=== PATIENT | male | born 1940 | race African-American/Black ===

== ENCOUNTER 2016-08-26 21:04 | Emergency (ER) | payer MEDICARE, OTHER ==
[~2016-08-26] VITALS: Ht 167.6 cm; Wt 88.5 kg
[~2016-08-26 21:04] MED LIST: ALBU8.5H8 INH; BECL8.7A5 INH; LISI-221 PO; METF-305 PO; OMEP20CA10 PO; SPIRIVA IH
[2016-08-26 21:05] VITALS: BP_SYST 163
--- NOTE | 2016-08-26 23:55 | NUR ---
AMBULATORY TO BED 7 FOR EVALUATION
--- NOTE | 2016-08-27 | NUR ---
PT IN BED7 WITH C/O SEVERE SUDDEN ONSET H/A . STABLE . DR MARY GROVES.
--- NOTE | 2016-08-27 00:17 | NUR ---
ER DR HERNANDEZ at bedside examining patient.
[2016-08-27 00:47] LABS: BASOPHILS % (AUTO) 0.2 % (0.0-2.0); HEMATOCRIT 41.9 % (36-54); HEMOGLOBIN 13.6 g/dL (14.0-18.0); LYMPHOCYTES % (AUTO) 26.7 % (20.5-51.5); MEAN CORPUSCULAR HEMOGLOBIN 30 pg (27-31); MEAN CORPUSCULAR HGB CONC 33 % (32-36); MEAN CORPUSCULAR VOLUME 92 fL (79.0-98.0); MONOCYTES # (AUTO) 0.8 K/uL (0.0-1.0); MONOCYTES % (AUTO) 7.2 % (1.7-9.3); NEUTROPHILS # (AUTO) 7.4 K/uL (1.8-7.7); NEUTROPHILS % (AUTO) 65.9 % (40.0-70.0); PLATELET COUNT (AUTO) 405 K/uL (130-430); RED BLOOD CELL COUNT(AUTO) 4.57 MIL/uL (4.2-6.2); RED CELL DISTRIBUTION WIDTH 14.1 % (9.0-15.0); WHITE BLOOD COUNT (AUTO) 11.2 K/uL (4.8-10.8)
[2016-08-27 00:48] LABS: ANION GAP 5 (5-15); CALCIUM 9.2 mg/dL (8.4-11.0); CHLORIDE 91 mmol/L (98-107); CREATININE 1.36 mg/dL (0.55-1.30); GLUCOSE 264 mg/dL (70-99); POTASSIUM 4.8 mmol/L (3.5-5.1); SODIUM SERUM 126 mmol/L (136-145); UREA NITROGEN, BLOOD 15 mg/dL (8-21)
[2016-08-27 00:53] LABS: ALANINE AMINOTRANSFERASE 21 U/L (12-78); ALBUMIN 3.5 g/dL (3.4-4.8); ASPARTATE AMINOTRANSFERASE 14 U/L (10-37); TOTAL BILIRUBIN 0.2 mg/dL (0.0-1.0); TOTAL PROTEIN, SERUM 7.7 g/dL (6.4-8.3)
--- NOTE | 2016-08-27 02:00 | NUR ---
Patient given written and verbal discharge instructions and verbalizes understanding. ER MD discussed with patient the results and treatment provided. Given copies of tests performed in ER. Patient in stable condition. ID arm band removed. No Rx given. Patient educated on pain management and to follow up with PMD. Pain Scale 0/10. Opportunity for questions provided and answered.
[2016-08-27 02:24] VITALS: BP_SYST 153
== END 2016-08-27 02:00 | disposition home or self-care (01) ==
LOC: SED 21:04
DX: R51 Headache (principal); J44.9 Chronic obstructive pulmonary disease, unspecified; E78.5 Hyperlipidemia, unspecified; E11.9 Type 2 diabetes mellitus without complications; K21.9 Gastro-esophageal reflux disease without esophagitis; I10 Essential (primary) hypertension; Z88.0 Allergy status to penicillin
CPT/HCPCS: 36415; 70450-TC; 80053; 85025; 99285

== ENCOUNTER 2021-01-31 08:27 | Emergency (ER) | payer OTHER ==
[~2021-01-31] VITALS: Ht 167.6 cm; Wt 55.8 kg
[~2021-01-31 08:27] MED LIST changes: -METF-305 PO; +METF-381 PO; -OMEP20CA10 PO; +OMEP20CA15 PO
[2021-01-31 08:35] VITALS: BP_SYST 165
--- NOTE | 2021-01-31 08:35 | NUR ---
Placed in room 7 . Placed on surveillance monitor, blood pressure machine and pulse oximeter. To gown for exam. Side rails up.
--- NOTE | 2021-01-31 08:36 | NUR ---
Pt came into ER with complaint of lower mid abdomianl pain X7days 01/02 with N/V/D X1day. Last BM this morning and last void this morning. Pt reports this pain started a week ago. Pt is AAOX4 speaking full sentences. Pt guarding abdomen resting in gurney attached to monitor. Vital signs holding BP slightly elevated 165/85.
--- NOTE | 2021-01-31 08:37 | NUR ---
Jan Ryan at bedside examining patient.
[2021-01-31] MEDS ORDERED: MORPHINE 4 MG INJ. 4 MG/ML VIAL IVP ONE (08:45)
--- NOTE | 2021-01-31 09:04 | NUR ---
# 20 gauge angiocath placed to LAC. Use of asceptic technique. Opsite placed over site. Blood return noted. Blood for lab drawn from site. Flushed with 10 cc of normal saline. No evidence of infiltration noted. Patient tolerated well.
--- NOTE | 2021-01-31 09:05 | NUR ---
Blood colelcted and sent to lab.
[2021-01-31 09:10] LABS: BASOPHILS # (AUTO) 0.3 K/uL (0.0-0.2); BASOPHILS % (AUTO) 2.7 % (0.0-2.0); EOSINOPHILS # (AUTO) 0.2 K/uL (0.0-0.4); HEMOGLOBIN 12.6 g/dL (14.0-18.0); LYMPHOCYTES # (AUTO) 2.9 K/uL (1.0-5.5); MEAN CORPUSCULAR HEMOGLOBIN 31 pg (27-31); MEAN CORPUSCULAR HGB CONC 34 % (32-36); MEAN CORPUSCULAR VOLUME 92 fL (79.0-98.0); MONOCYTES # (AUTO) 0.6 K/uL (0.0-1.0); MONOCYTES % (AUTO) 5.6 % (1.7-9.3); NEUTROPHILS # (AUTO) 7.1 K/uL (1.8-7.7); NEUTROPHILS % (AUTO) 63.7 % (40.0-70.0); PLATELET COUNT (AUTO) 386 K/uL (130-430); RED BLOOD CELL COUNT(AUTO) 4.04 MIL/uL (4.2-6.2); WHITE BLOOD COUNT (AUTO) 11.2 K/uL (4.8-10.8)
--- NOTE | 2021-01-31 09:10 | NUR ---
Patient transported to radiology via wheelchair, accompanied by tech.
[2021-01-31] MEDS ORDERED: NEU300 PO (09:24)
[2021-01-31] MEDS ORDERED: FURO-149 PO (09:24)
[2021-01-31] MEDS ORDERED: VITD2000 PO (09:24)
[2021-01-31] MEDS ORDERED: IRBE150T48 PO (09:24)
[2021-01-31] MEDS ORDERED: ATOR-1 PO (09:24)
[2021-01-31] MEDS ORDERED: ALBU2.5V7 INH (09:24)
[2021-01-31] MEDS ORDERED: ASPI-1393 PO (09:24)
[2021-01-31] MEDS ORDERED: FLUT1AER INH (09:24)
[2021-01-31] MEDS ORDERED: TAMS-11 PO (09:24)
[2021-01-31] MEDS ORDERED: RIVA10TA PO (09:24)
[2021-01-31] MEDS ORDERED: ACET325T53 PO (09:24)
[2021-01-31] MEDS ORDERED: ALBMDI INH (09:24)
--- NOTE | 2021-01-31 09:24 | NUR ---
Medication reconciliation completed with information provided by Patient provided list. Any prior medication reconciliation on file was reviewed and corrected.
--- NOTE | 2021-01-31 09:26 | NUR ---
Pt back from CT reattached to monitor.
[2021-01-31 09:27] LABS: ANION GAP 12 (5-15); CALCIUM 9.1 mg/dL (8.4-11.0); CHLORIDE 92 mmol/L (98-107); CREATININE 1.79 mg/dL (0.55-1.30); GLUCOSE 123 mg/dL (70-99); POTASSIUM 3.9 mmol/L (3.5-5.1); SODIUM SERUM 132 mmol/L (136-145); UREA NITROGEN, BLOOD 16 mg/dL (8-21)
[2021-01-31 09:33] LABS: ALANINE AMINOTRANSFERASE 14 U/L (12-78); ALBUMIN 3.6 g/dL (3.4-4.8); ASPARTATE AMINOTRANSFERASE 17 U/L (10-37); TOTAL BILIRUBIN 0.7 mg/dL (0.0-1.0)
--- NOTE | 2021-01-31 09:48 | NUR ---
Urine specimen collected and sent to lab.
--- NOTE | 2021-01-31 10:24 | NUR ---
In/Out catheter performed using sterile technique. Pt tolerated well. Pt states he feels relief. Over 1000 mLs of velasquez colored urine drained and collected.
--- NOTE | 2021-01-31 10:49 | NUR ---
Leg bag pedro insterted per MD order. Sterile technique applied. Pt tolerated well. Strapped to left thigh. Pt educated on usage and drainage. Return demonstration noted.
[2021-01-31 11:27] LABS: BILIRUBIN,URINE NEGATIVE (NEGATIVE); BLOOD, URINE NEGATIVE (NEGATIVE); COLOR,URINE YELLOW (YELLOW); GLUCOSE,URINE NEGATIVE (NEGATIVE); KETONES,URINE NEGATIVE (NEGATIVE); LEUKOCYTE ESTERASE ,URINE TRACE (NEGATIVE); NITRITE, URINE NEGATIVE (NEGATIVE); PROTEIN URINE NEGATIVE (NEGATIVE); UROBILINOGEN,URINE 0.2 (0.2-1.0)
[2021-01-31 11:28] LABS: CLARITY/URINE CLEAR (CLEAR)
--- NOTE | 2021-01-31 12:17 | NUR ---
Patient given written and verbal discharge instructions and verbalizes understanding. ER MD discussed with patient the results and treatment provided. Patient in stable condition. ID arm band removed. IV catheter removed intact and dressing applied, no active bleeding. Patient educated on pain management and to follow up with PMD. Pain Scale . Opportunity for questions provided and answered. Medication side effect fact sheet provided.
[2021-01-31 12:18] VITALS: BP_SYST 147
== END 2021-01-31 12:17 | disposition home or self-care (01) ==
LOC: SED 08:27
DX: R33.9 Retention of urine, unspecified (principal); G89.29 Other chronic pain; R10.30 Lower abdominal pain, unspecified; I10 Essential (primary) hypertension; E11.9 Type 2 diabetes mellitus without complications; J44.9 Chronic obstructive pulmonary disease, unspecified; K21.9 Gastro-esophageal reflux disease without esophagitis; Z88.0 Allergy status to penicillin; Z79.899 Other long term (current) drug therapy
CPT/HCPCS: 36415; 51701; 74176; 76376; 80053; 81003; 85025; 96374; 99284; J2270

== ENCOUNTER 2021-02-12 15:24 | Emergency (ER) | payer OTHER ==
[~2021-02-12] VITALS: Ht 167.6 cm; Wt 55.8 kg
[~2021-02-12 15:24] MED LIST changes: +ACET325T53 PO; +ALBMDI INH; +ALBU2.5V7 INH; -ALBU8.5H8 INH; +ASPI-1393 PO; +ATOR-1 PO; -BECL8.7A5 INH; +FLUT1AER INH; +FURO-149 PO; +IRBE150T48 PO; -LISI-221 PO; +NEU300 PO; +RIVA10TA PO; -SPIRIVA IH; +TAMS-11 PO; +VITD2000 PO
[2021-02-12 15:52] VITALS: BP_SYST 144
--- NOTE | 2021-02-12 18:04 | NUR ---
Patient to ER bed 02 to gown for evaluation. Side rails up.
--- NOTE | 2021-02-12 18:15 | NUR ---
urine specimen obtained from pedro cath. , blood tinged
--- NOTE | 2021-02-12 18:20 | NUR ---
Patient transported to radiology via wheelchair, accompanied by staff.
[2021-02-12 18:27] LABS: HEMATOCRIT 34.5 % (36-54); HEMOGLOBIN 11.8 g/dL (14.0-18.0); MEAN CORPUSCULAR HEMOGLOBIN 32 pg (27-31); MEAN CORPUSCULAR HGB CONC 34 % (32-36); MEAN CORPUSCULAR VOLUME 94 fL (79.0-98.0); PLATELET COUNT (AUTO) 519 K/uL (130-430); RED BLOOD CELL COUNT(AUTO) 3.69 MIL/uL (4.2-6.2); RED CELL DISTRIBUTION WIDTH 15.7 % (9.0-15.0); WHITE BLOOD COUNT (AUTO) 10.6 K/uL (4.8-10.8)
[2021-02-12 18:29] LABS: INR 0.9 (0.80-1.20); PROTHROMBIN TIME 10.1 SECS (9.5-12.5)
[2021-02-12 19:13] LABS: ANION GAP 8 (5-15); CALCIUM 9.2 mg/dL (8.4-11.0); CHLORIDE 95 mmol/L (98-107); GLUCOSE 98 mg/dL (70-99); POTASSIUM 4.3 mmol/L (3.5-5.1); SODIUM SERUM 132 mmol/L (136-145); UREA NITROGEN, BLOOD 13 mg/dL (8-21)
--- NOTE | 2021-02-12 19:18 | NUR ---
report to Mary
[2021-02-12 19:27] LABS: ALANINE AMINOTRANSFERASE 15 U/L (12-78); ALBUMIN 3.1 g/dL (3.4-4.8); AMYLASE 74 U/L (0-100); ASPARTATE AMINOTRANSFERASE 19 U/L (10-37); LIPASE 62 U/L (73-393); TOTAL BILIRUBIN 0.4 mg/dL (0.0-1.0)
[2021-02-12 20:17] LABS: C-REACTIVE PROTEIN QUANT 2.8 mg/dL (0-0.5)
[2021-02-12] MEDS ORDERED: NITR-85 PO (20:30)
--- NOTE | 2021-02-12 20:53 | NUR ---
AWAITING LAB RESULTS
--- NOTE | 2021-02-12 21:04 | NUR ---
PT [facility] DISCHG INSTRUCTIONS REVIEWED WITH PT PT DISCHGED WITH SON VIA WALKER TO AUTO FOR HOME STABLE
[2021-02-12 21:07] VITALS: BP_SYST 140
[2021-02-12 21:36] LABS: BILIRUBIN,URINE NEGATIVE (NEGATIVE); BLOOD, URINE 3+ (NEGATIVE); CLARITY/URINE CLOUDY (CLEAR); COLOR,URINE RED (YELLOW); GLUCOSE,URINE NEGATIVE (NEGATIVE); KETONES,URINE NEGATIVE (NEGATIVE); LEUKOCYTE ESTERASE ,URINE 3+ (NEGATIVE); NITRITE, URINE POSITIVE (NEGATIVE); PROTEIN URINE 1+ (NEGATIVE)
[2021-02-12 22:09] LABS: BACTERIA,URINE MANY /HPF (None Seen); RBC,URINE >100 /HPF (0-3); WBC,URINE 20-50 /HPF (0-3)
[2021-02-13 00:33] LABS: ATYPICAL LYMPHOCYTES % 4 % (0-0); BASOPHILS % (MANUAL) 0 % (0-2); EOSINOPHILS % (MANUAL) 1 % (0-7); LYMPHOCYTES % (MANUAL) 38 % (20-46); MONOCYTES % (MANUAL) 10 % (0-11)
== END 2021-02-12 21:07 | disposition home or self-care (01) ==
LOC: SED 15:24
DX: N39.0 Urinary tract infection, site not specified (principal); R31.9 Hematuria, unspecified; I10 Essential (primary) hypertension; E11.9 Type 2 diabetes mellitus without complications; J44.9 Chronic obstructive pulmonary disease, unspecified; K21.9 Gastro-esophageal reflux disease without esophagitis; Z88.0 Allergy status to penicillin; Z79.899 Other long term (current) drug therapy
CPT/HCPCS: 36415; 76376; 80053; 81000; 82150; 83605; 83690; 85007; 85025; 85027; 85610-TC; 85730-TC; 86140; 87086; 87186-TC; 99284

== ENCOUNTER 2022-05-16 15:41 | Inpatient (IN) | payer OTHER ==
[~2022-05-16] VITALS: Ht 167.6 cm; Wt 55.3 kg
[~2022-05-16 15:41] MED LIST changes: +FINA5TAB3 PO; +LEVO750T64 PO; +OMEP-268 PO; -OMEP20CA15 PO
[2022-05-16 15:48] VITALS: BP_SYST 109
--- NOTE | 2022-05-16 16:03 | NUR ---
PATIENT BIBChang FROM HOME AAOX4 UNABLE TO SPEAK A FULL SENTENCE, ON NRM PLACE IN ROOM 7 ON PARTS CATALOGUER, AWAITING FOR EDP FOR INITIAL ASSESSMENT.
[2022-05-16] MEDS ORDERED: NACL 0.9% 1,000 ML IV ONE (17:00)
[2022-05-16] MEDS ORDERED: NEU300 PO (17:01)
[2022-05-16] MEDS ORDERED: TAMS-11 PO (17:01)
[2022-05-16] MEDS ORDERED: ZETIA (17:01)
[2022-05-16] MEDS ORDERED: ALBMDI INH (17:01)
[2022-05-16] MEDS ORDERED: FURO10VI27 IVP (17:01)
[2022-05-16] MEDS ORDERED: OMEP20TA20 PO (17:01)
[2022-05-16] MEDS ORDERED: ATOR40TA68 PO (17:01)
[2022-05-16 17:40] LABS: BASOPHILS # (AUTO) 0.1 K/uL (0.0-0.2); BASOPHILS % (AUTO) 0.5 % (0.0-2.0); HEMATOCRIT 42.8 % (36-54); HEMOGLOBIN 14.5 g/dL (14.0-18.0); LYMPHOCYTES # (AUTO) 2.5 K/uL (1.0-5.5); LYMPHOCYTES % (AUTO) 11.6 % (20.5-51.5); MEAN CORPUSCULAR HEMOGLOBIN 31 pg (27-31); MEAN CORPUSCULAR HGB CONC 34 % (32-36); MEAN CORPUSCULAR VOLUME 90 fL (79.0-98.0); MONOCYTES % (AUTO) 4.7 % (1.7-9.3); NEUTROPHILS # (AUTO) 18.1 K/uL (1.8-7.7); NEUTROPHILS % (AUTO) 83.2 % (40.0-70.0); PLATELET COUNT (AUTO) 242 K/uL (130-430); RED BLOOD CELL COUNT(AUTO) 4.73 MIL/uL (4.2-6.2); RED CELL DISTRIBUTION WIDTH 15.3 % (9.0-15.0); WHITE BLOOD COUNT (AUTO) 21.8 K/uL (4.8-10.8)
[2022-05-16 17:56] LABS: ANION GAP 8 (5-15); CALCIUM 8.7 mg/dL (8.4-11.0); CHLORIDE 96 mmol/L (98-107); CREATININE 1.75 mg/dL (0.55-1.30); GLUCOSE 196 mg/dL (70-99); UREA NITROGEN, BLOOD 19 mg/dL (8-21)
[2022-05-16 18:03] LABS: PROTHROMBIN TIME 10.9 SECS (9.5-12.5)
[2022-05-16 18:05] LABS: ALANINE AMINOTRANSFERASE 10 U/L (12-78); ALBUMIN 2.7 g/dL (3.4-4.8); ASPARTATE AMINOTRANSFERASE 19 U/L (10-37); TOTAL BILIRUBIN 0.7 mg/dL (0.0-1.0)
[2022-05-16] MEDS ORDERED: NS 500 ML IV ONE (19:30)
--- NOTE | 2022-05-16 19:30 | NUR ---
Patient ambulated to restroom. Had a bowel movement.
--- NOTE | 2022-05-16 20:20 | NUR ---
Covid and Influenza swab done and sent to lab.
--- NOTE | 2022-05-16 21:52 | NUR ---
Patient resting quietly. No acute distress noted. Vital signs within normal range.
--- NOTE | 2022-05-16 23:05 | NUR ---
Patient will be admitted to care of [facility]. Admitted to TELE unit. Will go to room 111A. Belongings list completed. Complete and up to date summary report printed. SBAR report to be given at bedside with opportunity for questions.
[2022-05-17] VITALS (7 sets, daily range): BP systolic 100–134
[2022-05-17] MEDS ORDERED: ONDANSETRON HCL 4 MG/2 ML VIAL IVP PRN (07:15)
[2022-05-17] MEDS ORDERED: DEXTROSE 50% JECT 50 ML DISP.SYRIN IVP PRN (07:15)
[2022-05-17] MEDS ORDERED: ALBUTEROL SULFATE 0.083% 2.5 MG/3 ML VIAL.NEB INH PRN (07:15)
[2022-05-17] MEDS ORDERED: MORPHINE 2 MG/ML INJ. SYRINGE IVP PRN (07:15)
[2022-05-17] MEDS ORDERED: IPRATROPIUM BROM 0.5 MG/2.5 ML VIAL.NEB (ATROVENT) INH PRN (07:15)
[2022-05-17] MEDS ORDERED: GLUCOSE (DEXTROSE) ORAL GEL -Adults PO PRN (07:15)
[2022-05-17] MEDS ORDERED: D5W 1,000 ML IV PRN (07:15)
[2022-05-17] MEDS: ENOXAPARIN SODIUM 30 MG/0.3 ML SYRINGE SUBCUT SCH (09:00)
[2022-05-17] MEDS ORDERED: ASPIRIN 81 MG TABLET(ECOTRIN) PO SCH (09:00)
[2022-05-17] MEDS ORDERED: ENOXAPARIN SODIUM 40 MG/0.4 ML SYRINGE ONE (09:16)
--- NOTE | 2022-05-17 09:37 | NUR ---
CONSULTATION PAGED/CALLED Reason for Consultation: ELEV TROP Person Who was Notified: JASMYN Consulting Physician: ALLISON ARDON Ordering Physician: JOHN BAUMANN
--- NOTE | 2022-05-17 09:46 | NUR ---
CONSULTATION PAGED/CALLED Reason for Consultation: PNA Person Who was Notified: BETH Consulting Physician: JOHN WARNER Ordering Physician: JOHN BAUMANN
[2022-05-17 10:45] LABS: BASOPHILS # (AUTO) 0.1 K/uL (0.0-0.2); BASOPHILS % (AUTO) 0.3 % (0.0-2.0); EOSINOPHILS % (AUTO) 0.1 % (0.0-4.0); HEMATOCRIT 38.3 % (36-54); HEMOGLOBIN 12.8 g/dL (14.0-18.0); LYMPHOCYTES # (AUTO) 2.3 K/uL (1.0-5.5); LYMPHOCYTES % (AUTO) 11.9 % (20.5-51.5); MEAN CORPUSCULAR HEMOGLOBIN 31 pg (27-31); MEAN CORPUSCULAR HGB CONC 34 % (32-36); MEAN CORPUSCULAR VOLUME 91 fL (79.0-98.0); MONOCYTES # (AUTO) 0.7 K/uL (0.0-1.0); MONOCYTES % (AUTO) 3.7 % (1.7-9.3); NEUTROPHILS # (AUTO) 16.3 K/uL (1.8-7.7); PLATELET COUNT (AUTO) 208 K/uL (130-430); RED CELL DISTRIBUTION WIDTH 15.8 % (9.0-15.0); WHITE BLOOD COUNT (AUTO) 19.4 K/uL (4.8-10.8)
[2022-05-17] MEDS: ASPIRIN 81 MG TAB.CHEW PO SCH (11:05)
[2022-05-17] MEDS ORDERED: GABAPENTIN 300 MG CAPSULE PO ONE (11:15)
[2022-05-17] MEDS ORDERED: INSULIN REGULAR, HUMAN 100 UNITS/ML, 3 ML VIAL (humuLIN R) SUBCUT PRN (11:30)
[2022-05-17 12:14] LABS: ALANINE AMINOTRANSFERASE 6 U/L (12-78); ALBUMIN 2.5 g/dL (3.4-4.8); ANION GAP 7 (5-15); ASPARTATE AMINOTRANSFERASE 18 U/L (10-37); CALCIUM 8.2 mg/dL (8.4-11.0); CHLORIDE 97 mmol/L (98-107); CHOLESTEROL 106 mg/dL (<200); CREATININE 1.54 mg/dL (0.55-1.30); GLUCOSE 222 mg/dL (70-99); HDL CHOLESTEROL 63 mg/dL (>45); TOTAL BILIRUBIN 0.9 mg/dL (0.0-1.0); TRIGLYCERIDES 69 mg/dL (30-150); UREA NITROGEN, BLOOD 23 mg/dL (8-21)
--- NOTE | 2022-05-17 13:24 | NUR ---
IN AND OUT CATHETER UNSUCCESSFUL. PATIENT SAID HE WILL TRY TO PEE IN URINAL FOR UA AND URINE CULTURE COLLECTION;.
--- NOTE | 2022-05-17 18:08 | NUR ---
blood sugar 68. notified dr. holbrook. gave orange juice. blood sugar recheck is 135.
[2022-05-17] MEDS: TAMSULOSIN HCL 0.4 MG CAP PO SCH (18:14)
[2022-05-17] MEDS: ALBUTEROL SULFATE 0.083% 2.5 MG/3 ML VIAL.NEB INH SCH (19:52)
[2022-05-17] MEDS: ATORVASTATIN 20 MG TABLET PO SCH (21:02)
[2022-05-17] MEDS: GABAPENTIN 300 MG CAPSULE PO SCH (21:02)
--- NOTE | 2022-05-17 22:38 | NUR ---
Report given to CRYS Gerber for continuity of care. Patient stable.
[2022-05-18 00:16] VITALS: BP_SYST 121
[2022-05-18] MEDS: ALBUTEROL SULFATE 0.083% 2.5 MG/3 ML VIAL.NEB INH SCH ×4 (03:42→20:03)
[2022-05-18 04:52] LABS: BASOPHILS # (AUTO) 0.1 K/uL (0.0-0.2); BASOPHILS % (AUTO) 0.6 % (0.0-2.0); EOSINOPHILS % (AUTO) 0.2 % (0.0-4.0); HEMATOCRIT 35.4 % (36-54); HEMOGLOBIN 11.9 g/dL (14.0-18.0); LYMPHOCYTES # (AUTO) 3.2 K/uL (1.0-5.5); LYMPHOCYTES % (AUTO) 19.4 % (20.5-51.5); MEAN CORPUSCULAR HEMOGLOBIN 31 pg (27-31); MEAN CORPUSCULAR HGB CONC 34 % (32-36); MEAN CORPUSCULAR VOLUME 91 fL (79.0-98.0); MONOCYTES % (AUTO) 6.2 % (1.7-9.3); NEUTROPHILS # (AUTO) 12.3 K/uL (1.8-7.7); NEUTROPHILS % (AUTO) 73.6 % (40.0-70.0); PLATELET COUNT (AUTO) 202 K/uL (130-430); RED CELL DISTRIBUTION WIDTH 15.5 % (9.0-15.0); WHITE BLOOD COUNT (AUTO) 16.7 K/uL (4.8-10.8)
[2022-05-18 05:04] LABS: ANION GAP 3 (5-15); CALCIUM 8.5 mg/dL (8.4-11.0); CHLORIDE 99 mmol/L (98-107); CREATININE 1.25 mg/dL (0.55-1.30); GLUCOSE 119 mg/dL (70-99); UREA NITROGEN, BLOOD 20 mg/dL (8-21)
[2022-05-18 05:16] LABS: ALANINE AMINOTRANSFERASE 11 U/L (12-78); ALBUMIN 2.2 g/dL (3.4-4.8); ASPARTATE AMINOTRANSFERASE 18 U/L (10-37); TOTAL BILIRUBIN 0.8 mg/dL (0.0-1.0)
[2022-05-18] MEDS ORDERED: FINASTERIDE 5 MG TABLET (PROSCAR) PO SCH (09:00)
[2022-05-18] MEDS: BREO INH SCH (09:00)
[2022-05-18] MEDS ORDERED: ATORVASTATIN 20 MG TABLET PO SCH (09:00)
[2022-05-18] MEDS: ELLIPTA INH SCH (09:00)
[2022-05-18] MEDS ORDERED: FLUTICASONE/VILANTEROL 1 EACH BLST.W.DEV INH SCH (09:00)
[2022-05-18] MEDS: GABAPENTIN 300 MG CAPSULE PO SCH ×2 (09:02→21:12)
[2022-05-18] MEDS: ASPIRIN 81 MG TAB.CHEW PO SCH (09:03)
[2022-05-18] MEDS: ENOXAPARIN SODIUM 30 MG/0.3 ML SYRINGE SUBCUT SCH (09:03)
[2022-05-18] MEDS: LOSARTAN POTASSIUM 50 MG TABLET (COZAAR) PO SCH (09:03)
[2022-05-18 11:30] VITALS: BP_SYST 116
[2022-05-18 11:52] LABS: URINE SODIUM, RANDOM 10 mmol/L (40-220)
[2022-05-18 15:41] VITALS: BP_SYST 101
[2022-05-18] MEDS: TAMSULOSIN HCL 0.4 MG CAP PO SCH (17:38)
[2022-05-18] MEDS: ATORVASTATIN 20 MG TABLET PO SCH (21:12)
[2022-05-19 00:23] VITALS: BP_SYST 131
[2022-05-19 07:05] LABS: BASOPHILS # (AUTO) 0.1 K/uL (0.0-0.2); BASOPHILS % (AUTO) 0.9 % (0.0-2.0); EOSINOPHILS # (AUTO) 0.1 K/uL (0.0-0.4); EOSINOPHILS % (AUTO) 0.5 % (0.0-4.0); HEMATOCRIT 33.5 % (36-54); HEMOGLOBIN 11.4 g/dL (14.0-18.0); LYMPHOCYTES # (AUTO) 2.8 K/uL (1.0-5.5); LYMPHOCYTES % (AUTO) 27.4 % (20.5-51.5); MEAN CORPUSCULAR HEMOGLOBIN 31 pg (27-31); MEAN CORPUSCULAR HGB CONC 34 % (32-36); MEAN CORPUSCULAR VOLUME 91 fL (79.0-98.0); MONOCYTES # (AUTO) 0.9 K/uL (0.0-1.0); MONOCYTES % (AUTO) 8.4 % (1.7-9.3); NEUTROPHILS # (AUTO) 6.5 K/uL (1.8-7.7); NEUTROPHILS % (AUTO) 62.8 % (40.0-70.0); PLATELET COUNT (AUTO) 234 K/uL (130-430); RED BLOOD CELL COUNT(AUTO) 3.68 MIL/uL (4.2-6.2); WHITE BLOOD COUNT (AUTO) 10.4 K/uL (4.8-10.8)
[2022-05-19] MEDS: ALBUTEROL SULFATE 0.083% 2.5 MG/3 ML VIAL.NEB INH SCH ×2 (07:12→12:09)
[2022-05-19 08:00] VITALS: BP_SYST 114
[2022-05-19 08:02] LABS: ANION GAP 5 (5-15); C-REACTIVE PROTEIN QUANT 13.3 mg/dL (0-0.5); CALCIUM 8.6 mg/dL (8.4-11.0); CHLORIDE 101 mmol/L (98-107); CREATININE 1.21 mg/dL (0.55-1.30); GLUCOSE 132 mg/dL (70-99); PHOSPHORUS 3.3 mg/dL (2.7-4.5); UREA NITROGEN, BLOOD 20 mg/dL (8-21)
[2022-05-19] MEDS: ASPIRIN 81 MG TAB.CHEW PO SCH (09:18)
[2022-05-19] MEDS: GABAPENTIN 300 MG CAPSULE PO SCH (09:18)
[2022-05-19] MEDS: LOSARTAN POTASSIUM 50 MG TABLET (COZAAR) PO SCH (09:18)
[2022-05-19] MEDS: ENOXAPARIN SODIUM 30 MG/0.3 ML SYRINGE SUBCUT SCH (09:18)
[2022-05-19] MEDS: BREO INH SCH (09:22)
[2022-05-19] MEDS: ELLIPTA INH SCH (09:22)
[2022-05-19 10:41] LABS: ERYTHROCYTE SEDIMENTATION RATE 85 MM/HR (0-15)
[2022-05-19 11:33] VITALS: BP_SYST 134
[2022-05-19] MEDS ORDERED: LEVO750T64 PO (12:29)
[2022-05-19 13:13] VITALS: BP_SYST 134
== END 2022-05-19 13:30 | disposition home health service (06) | DRG 871 ==
LOC: SED 15:41 → STU 19:26
PROVIDERS: ADMIT Specialist; ATTEND Specialist
DX: A41.9 Sepsis, unspecified organism (principal); I21.4 Non-ST elevation (NSTEMI) myocardial infarction; J96.01 Acute respiratory failure with hypoxia; J12.9 Viral pneumonia, unspecified; N17.9 Acute kidney failure, unspecified; J44.0 Chronic obstructive pulmonary disease with (acute) lower respiratory infection; R64 Cachexia; Z68.1 Body mass index [BMI] 19.9 or less, adult; I24.8 Other forms of acute ischemic heart disease; R65.20 Severe sepsis without septic shock; D64.9 Anemia, unspecified; E11.22 Type 2 diabetes mellitus with diabetic chronic kidney disease; E11.65 Type 2 diabetes mellitus with hyperglycemia; E87.6 Hypokalemia; E88.09 Other disorders of plasma-protein metabolism, not elsewhere classified; K21.9 Gastro-esophageal reflux disease without esophagitis; F17.210 Nicotine dependence, cigarettes, uncomplicated; E11.21 Type 2 diabetes mellitus with diabetic nephropathy; I12.9 Hypertensive chronic kidney disease with stage 1 through stage 4 chronic kidney disease, or unspecified chronic kidney disease; I35.0 Nonrheumatic aortic (valve) stenosis; N40.0 Benign prostatic hyperplasia without lower urinary tract symptoms; N18.9 Chronic kidney disease, unspecified; Z79.4 Long term (current) use of insulin; Z79.899 Other long term (current) drug therapy; Z88.0 Allergy status to penicillin; Z79.82 Long term (current) use of aspirin
CPT/HCPCS: 36415; 36600; 71045; 71250-TC; 76376; 76770; 80048; 80053; 80061; 82570; 82803-TC; 82962; 83036; 83605; 83735; 83880; 84100; 84302; 84443; 84484; 85025; 85610-TC; 85651-TC; 85730-TC; 86140; 87040; 93005; 93306; 94640; 94760; 96361; 96365; 99285; G0378; J1650; J1815; J1956; J7613

== ENCOUNTER 2022-07-19 04:30 | Emergency (ER) | payer OTHER ==
[~2022-07-19] VITALS: Ht 167.6 cm; Wt 55.8 kg
[~2022-07-19 04:30] MED LIST changes: -ALBU2.5V7 INH; -ATOR-1 PO; +ATOR40TA68 PO; -FINA5TAB3 PO; -OMEP-268 PO; +OMEP20TA20 PO; +ZETIA
[2022-07-19 04:40] VITALS: BP_SYST 110
--- NOTE | 2022-07-19 04:42 | NUR ---
ER at bedside examining patient.
[2022-07-19] MEDS ORDERED: OXYMETAZOLINE HCL 0.05% NASAL SPRAY NS ONE ×2 (04:49→06:15)
--- NOTE | 2022-07-19 05:00 | NUR ---
Pt is noted in bed alert, responsive as he he come from home C/o off Nosebleed. Pt care continue as MD is at bedside rounding on Pt.
--- NOTE | 2022-07-19 06:10 | NUR ---
Pt remain alert, responsive with MD at bedside renforcing dressing and packing to Noese. Pt care continue.
--- NOTE | 2022-07-19 07:08 | NUR ---
Pt care continue while monitor as he is due for discharge any bleeding stops as pt is still bleeding and on coming MD is aware.
--- NOTE | 2022-07-19 07:15 | NUR ---
Pt care continue as report is given to the AM receiving nurse.
--- NOTE | 2022-07-19 07:38 | NUR ---
RECEIVED PT FROM NOC SHIFT RN, ASSUMED CARE.
[2022-07-19] MEDS ORDERED: TRANEXAMIC ACID 1,000 MG/10 ML VIAL TP ONE (08:45)
--- NOTE | 2022-07-19 09:09 | NUR ---
DR BECKFORD AT BEDSIDE DISCUSSING PLAN OF CARE.
--- NOTE | 2022-07-19 09:19 | NUR ---
Patient given written and verbal discharge instructions and verbalizes understanding. ER DR BECKFORD discussed with patient the results and treatment provided. Patient in stable condition. ID arm band removed. Patient educated on pain management and to follow up with PMD. Pain Opportunity for questions provided and answered. Medication side effect fact sheet provided.
[2022-07-19 09:52] VITALS: BP_SYST 112
== END 2022-07-19 09:19 | disposition home or self-care (01) ==
LOC: SED 04:30
DX: R04.0 Epistaxis (principal); J44.9 Chronic obstructive pulmonary disease, unspecified; E11.9 Type 2 diabetes mellitus without complications; I10 Essential (primary) hypertension; K21.9 Gastro-esophageal reflux disease without esophagitis; E78.5 Hyperlipidemia, unspecified; Z88.0 Allergy status to penicillin; Z79.899 Other long term (current) drug therapy
CPT/HCPCS: 99285; 30901; J3490

== ENCOUNTER 2022-07-22 09:50 | Emergency (ER) | payer OTHER ==
[~2022-07-22] VITALS: Ht 175.3 cm; Wt 52.2 kg
[2022-07-22 10:30] VITALS: BP_SYST 114
--- NOTE | 2022-07-22 12:30 | NUR ---
Patient to ER bed TRIAGE to gown for evaluation. Side rails up.
--- NOTE | 2022-07-22 12:40 | NUR ---
ER at bedside examining patient.
--- NOTE | 2022-07-22 12:42 | NUR ---
RHINO ENA REMOVED. PT TOLERTAED WELL.
--- NOTE | 2022-07-22 12:52 | NUR ---
Patient given written and verbal discharge instructions and verbalizes understanding. ER MD discussed with patient the results and treatment provided. Patient in stable condition. ID arm band removed. Opportunity for questions provided and answered. Medication side effect fact sheet provided.
[2022-07-22 13:00] VITALS: BP_SYST 164
== END 2022-07-22 13:00 | disposition home or self-care (01) ==
LOC: SED 09:50
DX: R04.0 Epistaxis (principal); J44.9 Chronic obstructive pulmonary disease, unspecified; E11.9 Type 2 diabetes mellitus without complications; I10 Essential (primary) hypertension; K21.9 Gastro-esophageal reflux disease without esophagitis; Z88.0 Allergy status to penicillin; Z79.899 Other long term (current) drug therapy
CPT/HCPCS: 99281

== ENCOUNTER 2022-08-10 09:15 | Inpatient (IN) | payer OTHER ==
[~2022-08-10] VITALS: Ht 167.6 cm; Wt 59.9 kg
[2022-08-10 09:29] VITALS: BP_SYST 98
--- NOTE | 2022-08-10 09:35 | NUR ---
Pt brought in by [facility] ambulance from home. Mechanical fall with sustained injury to left hip. Non weight bearing after fall. Pt has pain to the left leg and left rib. Pt lying on right side lateral brunner for comfort. Pt states fell last week and injured right side of hip. Pt is 7-9/10 pain gradient.
--- NOTE | 2022-08-10 09:40 | NUR ---
ER at bedside examining patient.
[2022-08-10] MEDS ORDERED: KETOROLAC TROMETHAMINE 15 MG VIAL IM ONE (09:45)
--- NOTE | 2022-08-10 10:10 | NUR ---
Pt returns from Radiology dept. Pt side lying flat position for comfort.
[2022-08-10] MEDS ORDERED: MORPHINE 4 MG INJ. 4 MG/ML VIAL IVP ONE ×2 (11:00→12:45)
--- NOTE | 2022-08-10 11:22 | NUR ---
COVID NASAL SWAB COLLECTED AND SENT TO LAB
--- NOTE | 2022-08-10 11:37 | NUR ---
Pt medicated per MD order, heart rate tachy 107. Pt on right side lying position.
[2022-08-10 12:08] LABS: BASOPHILS # (AUTO) 0.1 K/uL (0.0-0.2); BASOPHILS % (AUTO) 0.9 % (0.0-2.0); EOSINOPHILS # (AUTO) 0.2 K/uL (0.0-0.4); EOSINOPHILS % (AUTO) 2.1 % (0.0-4.0); HEMATOCRIT 33.4 % (36-54); HEMOGLOBIN 11.3 g/dL (14.0-18.0); LYMPHOCYTES # (AUTO) 2.6 K/uL (1.0-5.5); LYMPHOCYTES % (AUTO) 26.1 % (20.5-51.5); MEAN CORPUSCULAR HEMOGLOBIN 31 pg (27-31); MEAN CORPUSCULAR HGB CONC 34 % (32-36); MEAN CORPUSCULAR VOLUME 92 fL (79.0-98.0); MONOCYTES # (AUTO) 0.7 K/uL (0.0-1.0); MONOCYTES % (AUTO) 6.7 % (1.7-9.3); NEUTROPHILS # (AUTO) 6.4 K/uL (1.8-7.7); NEUTROPHILS % (AUTO) 64.2 % (40.0-70.0); PLATELET COUNT (AUTO) 307 K/uL (130-430); RED BLOOD CELL COUNT(AUTO) 3.63 MIL/uL (4.2-6.2); RED CELL DISTRIBUTION WIDTH 16.2 % (9.0-15.0); WHITE BLOOD COUNT (AUTO) 9.9 K/uL (4.8-10.8)
[2022-08-10 12:19] LABS: ANION GAP 7 (5-15); CHLORIDE 88 mmol/L (98-107); CREATININE 1.56 mg/dL (0.55-1.30); GLUCOSE 108 mg/dL (70-99); UREA NITROGEN, BLOOD 26 mg/dL (8-21)
[2022-08-10 12:21] LABS: PROTHROMBIN TIME 10.3 SECS (9.5-12.5)
--- NOTE | 2022-08-10 12:34 | NUR ---
Admit bed requested Patient will be admitted to care of . Admitted to MEDSURG unit. Diagnosis FX OF THE HIP Inpatient (Yes or No) Y Observation (Yes or No) N Orientation concerns or request close to nursing station (Yes or No) N Covid Status NEGATIVE On vent or bipap NO Isolation requirements NO Needs a sitter N From Home (Yes or if No enter name of facility) HOME Requires Dialysis (Yes or No) NO Med Rec Completed (Yes of No) YES, PER VERBAL INTAKE.
--- NOTE | 2022-08-10 12:40 | NUR ---
Medication reconciled per verbal statement review of Pt Pharmacy list.
[2022-08-10] MEDS ORDERED: MORPHINE 2 MG/ML INJ. SYRINGE IVP ONE (12:45)
[2022-08-10] MEDS ORDERED: DULO30CA52 PO (14:18)
[2022-08-10] MEDS ORDERED: GABAPENTIN (14:18)
[2022-08-10] MEDS ORDERED: TAMS0.4C96 PO (14:18)
[2022-08-10] MEDS ORDERED: LISI1TAB55 PO (14:18)
[2022-08-10] MEDS ORDERED: GABA300T25 (14:18)
[2022-08-10] MEDS ORDERED: FURO40TA5 PO (14:18)
[2022-08-10] MEDS ORDERED: EZET10TA30 PO (14:18)
[2022-08-10] MEDS ORDERED: SITA50TA3 PO (14:18)
[2022-08-10] MEDS ORDERED: HYDROcodone/ACETAMIN 5-325 MG TAB (NORCO/ VICODIN) PO PRN (15:45)
[2022-08-10] MEDS ORDERED: ALBUTEROL SULFATE 0.083% 2.5 MG/3 ML VIAL.NEB INH PRN (15:45)
[2022-08-10] MEDS ORDERED: ACETAMINOPHEN 325 MG TABLET PO PRN ×2 (15:45→16:15)
[2022-08-10] MEDS ORDERED: ONDANSETRON HCL 4 MG/2 ML VIAL IVP PRN (15:45)
[2022-08-10] MEDS ORDERED: NALOXONE HCL 0.4 MG/ML AMP (NARCAN) IVP PRN ×2 (15:45)
[2022-08-10] MEDS ORDERED: LORazepam 2 MG/ML VIAL IVP PRN (15:45)
--- NOTE | 2022-08-10 16:00 | NUR ---
admitted patient brought to floor via gurney. patient is awake and alert and oriented. educated international manager light for assistance. call light is with him. vital signs are stable. patient has no complaints at this time. no other needs. provided with urinal . patient is requesting to rest at this time. paging surgeon to clarify orders.
[2022-08-10] MEDS: D5NS 1,000 ML IV SCH (16:12)
[2022-08-10 16:21] VITALS: BP_SYST 104
[2022-08-10 16:27] VITALS: BP_SYST 104
--- NOTE | 2022-08-10 17:30 | NUR ---
SPOKE WITH PATIENT IS OK TO EAT AND NPO AT 08/13 0000. LABS NEED TO BE CORRECTED PRIOR TO HAVING SURGERY. Addendum: 08/10/22 at 1899 by Rosy Lauren RN REFUSING ACCU CHECK AT THIS TIME, WANTS TO REST Addendum: 08/10/22 at 1909 by Rosy Lauren RN refusing to eat accu check done
--- NOTE | 2022-08-10 18:30 | NUR ---
Patient will be admitted to care of Med surg . Will go to room 109a. Belongings list completed. Complete and up to date summary report printed. SBAR report to be given at bedside with opportunity for questions.
--- NOTE | 2022-08-10 19:09 | NUR ---
accu check was done but does not want to eat so no coverage given
--- NOTE | 2022-08-10 19:15 | NUR ---
CHANGE OF SHIFT; endorsed by day shift SP fall with DX left hip fracture and rib. in no distress. bed alarm on. call light within reach.
[2022-08-10 20:00] VITALS: BP_SYST 99
[2022-08-10] MEDS: ALBUTEROL SULFATE 0.083% 2.5 MG/3 ML VIAL.NEB INH SCH (20:19)
[2022-08-10] MEDS: BUDESONIDE 0.5 MG/2 ML AMPUL.NEB INH SCH (20:19)
[2022-08-10] MEDS: GABAPENTIN 300 MG CAPSULE PO SCH (21:38)
[2022-08-10] MEDS: ATORVASTATIN 20 MG TABLET PO SCH (21:38)
[2022-08-10] MEDS: INSULIN REGULAR, HUMAN 100 UNITS/ML, 3 ML VIAL (humuLIN R) SUBCUT PRN (21:46)
--- NOTE | 2022-08-10 21:50 | NUR ---
NOTES: medicated with [place] tab for c/o left hip pain and due medications given. BS checked 193, sliding scale coverage given. repositioned and pulled up in bed. noted occ. bouts of non productive cough, gets breathing treatment.
--- NOTE | 2022-08-10 22:53 | NUR ---
CONSULTATION PAGED/CALLED Reason for Consultation: CARDIAC CLEARENCE Person Who was Notified: DR Ester JENSEN VIA TEXT Consulting Physician: JEFF Gardening Manager Specialty: Ordering Physician: John JENSEN
[2022-08-11 00:27] VITALS: BP_SYST 119
--- NOTE | 2022-08-11 03:00 | NUR ---
NOTES: pt. been sleeping. no complaints manifested. IV infusing. SCD's applied.
[2022-08-11] MEDS: ALBUTEROL SULFATE 0.083% 2.5 MG/3 ML VIAL.NEB INH SCH ×4 (03:23→20:03)
[2022-08-11] MEDS: D5NS 1,000 ML IV SCH (05:54)
[2022-08-11] MEDS: INSULIN REGULAR, HUMAN 100 UNITS/ML, 3 ML VIAL (humuLIN R) SUBCUT PRN ×2 (06:02→20:50)
--- NOTE | 2022-08-11 06:30 | NUR ---
CLOSING NOTES; BS CHECKED 164. IV CONTINUOUS. MAINTAIN BEDREST. IV SITE INTACT. FOR FURTHER CARE AND ASSISTANCE. BED ALARM ON. CALL LIGHT WITHIN REACH.
[2022-08-11] MEDS: BUDESONIDE 0.5 MG/2 ML AMPUL.NEB INH SCH ×2 (07:31→20:03)
--- NOTE | 2022-08-11 07:45 | NUR ---
OPENING NOTES: RECEIVED BEDSIDE SBAR FROM PM SHIFT NURSE, NO S/S OF ANY DISTRESS, NON LABOR BREATHING, BED AT LOW AND LOCKED POSITION CALL LIGHT IN REACH PATIENT IS RESTING IN BED WITH EYES CLOSED, SAFETY CHECKS DONE AND WILL DO THOUGHT THE DAY, WILL MONITOR PATIENT PER ORDERS.
[2022-08-11 08:27] LABS: ANION GAP 5 (5-15); CALCIUM 8.5 mg/dL (8.4-11.0); CHLORIDE 93 mmol/L (98-107); CREATININE 1.55 mg/dL (0.55-1.30); GLUCOSE 173 mg/dL (70-99); PHOSPHORUS 3.9 mg/dL (2.7-4.5); UREA NITROGEN, BLOOD 24 mg/dL (8-21)
[2022-08-11 08:42] LABS: BASOPHILS # (AUTO) 0.1 K/uL (0.0-0.2); BASOPHILS % (AUTO) 0.6 % (0.0-2.0); EOSINOPHILS # (AUTO) 0.2 K/uL (0.0-0.4); EOSINOPHILS % (AUTO) 1.6 % (0.0-4.0); HEMATOCRIT 29.9 % (36-54); HEMOGLOBIN 10.3 g/dL (14.0-18.0); LYMPHOCYTES # (AUTO) 2.2 K/uL (1.0-5.5); MEAN CORPUSCULAR HEMOGLOBIN 31 pg (27-31); MEAN CORPUSCULAR HGB CONC 35 % (32-36); MEAN CORPUSCULAR VOLUME 91 fL (79.0-98.0); MONOCYTES # (AUTO) 0.7 K/uL (0.0-1.0); MONOCYTES % (AUTO) 6.6 % (1.7-9.3); NEUTROPHILS # (AUTO) 7.4 K/uL (1.8-7.7); NEUTROPHILS % (AUTO) 70.2 % (40.0-70.0); PLATELET COUNT (AUTO) 269 K/uL (130-430); RED CELL DISTRIBUTION WIDTH 16.5 % (9.0-15.0); WHITE BLOOD COUNT (AUTO) 10.6 K/uL (4.8-10.8)
[2022-08-11] MEDS ORDERED: lisinopriL 20 MG TABLET PO SCH ×2 (09:00→10:09)
[2022-08-11] MEDS ORDERED: levoFLOXacin 750 MG TABLET PO SCH (09:00)
[2022-08-11] MEDS: EZETIMIBE 10 MG TABLET PO SCH (09:59)
[2022-08-11] MEDS: DULoxetine HCL 30 MG CAPSULE.DR (CYMBALTA) PO SCH (10:00)
[2022-08-11] MEDS: HYDROCHLOROTHIAZIDE 12.5 MG CAPSULE (HCTZ) PO SCH (10:00)
[2022-08-11] MEDS: FUROSEMIDE 40 MG TABLET PO SCH (10:00)
[2022-08-11] MEDS: PANTOPRAZOLE SODIUM 40 MG TAB PO SCH (10:00)
[2022-08-11] MEDS: GABAPENTIN 300 MG CAPSULE PO SCH ×2 (10:00→20:45)
[2022-08-11] MEDS: CHOLECALCIFEROL (VITAMIN D3) 2,000 UNIT TABLET PO SCH (10:06)
[2022-08-11] MEDS: TAMSULOSIN HCL 0.4 MG CAP PO SCH (10:06)
[2022-08-11] MEDS: LOSARTAN POTASSIUM 50 MG TABLET (COZAAR) PO SCH (10:07)
[2022-08-11] MEDS: ASPIRIN 81 MG TABLET(ECOTRIN) PO SCH (10:07)
--- NOTE | 2022-08-11 11:29 | NUR ---
DR VALDEZ AT BEDSIDE WITH FAMILY TO GO OVER SURGERY SURGERY ON FRIDAY
[2022-08-11] MEDS ORDERED: TAMSULOSIN HCL 0.4 MG CAP PO SCH (12:30)
[2022-08-11] MEDS: NACL 0.9% 1,000 ML IV SCH (12:30)
[2022-08-11 16:21] VITALS: BP_SYST 102
--- NOTE | 2022-08-11 19:30 | NUR ---
OPENING NOTES Patient resting in bed - no s/s pain or distress noted. Respirations even and unlabored - head of bed elevated. IV sites patent - no s/s redness, infection, or infiltration. Bed locked and in lowest position. Call light within reach. Bed alarm on.
[2022-08-11 19:34] LABS: ANION GAP 7 (5-15); CALCIUM 8.4 mg/dL (8.4-11.0); CHLORIDE 92 mmol/L (98-107); CREATININE 1.58 mg/dL (0.55-1.30); GLUCOSE 153 mg/dL (70-99); UREA NITROGEN, BLOOD 26 mg/dL (8-21)
[2022-08-11 20:00] VITALS: BP_SYST 112
[2022-08-11] MEDS: ATORVASTATIN 20 MG TABLET PO SCH (20:45)
[2022-08-11] MEDS ORDERED: RIVAROXABAN 10 MG TABLET PO SCH (21:00)
--- NOTE | 2022-08-11 23:06 | NUR ---
PATIENT HEART RATE 120-130s notified Dr. Burt Saenz, orders to place on heart monitor and 12 lead EKG and to call him back regarding his heart rhythm also notified Dr. Denise that xarelto is ordered despite patient has scheduled surgery 08/13/22, ordered to hold
--- NOTE | 2022-08-11 23:32 | NUR ---
notified dr. maxine frank heart rate 119 sinus tachycardia right bundle branch block clarified with dr. maxine frank if he wanted patient to be admitted under telemetry despite only ordering to place a telemonitor on per previous call. orders to transfer patient to telemetry. also orders cardizem 10mg IVP q6h PRN for heart rate greater than 110, hold if systolic blood pressure less than 100. Addendum: 08/11/22 at 7647 by Jovani Benitez RN all orders repeated back and verbalized with doctor maxine frank's approval
[2022-08-12] VITALS: BP_SYST 100
--- NOTE | 2022-08-12 00:36 | NUR ---
transfer of care to Gaby SPANGLER due to patient admitted to telemetry
[2022-08-12] MEDS: ALBUTEROL SULFATE 0.083% 2.5 MG/3 ML VIAL.NEB INH SCH ×4 (01:00→19:50)
[2022-08-12] MEDS: NACL 0.9% 1,000 ML IV SCH ×2 (01:06→09:42)
[2022-08-12] MEDS: dilTIAZem HCL IVP 5 MG/ML VIAL IVP PRN (02:47)
--- NOTE | 2022-08-12 06:57 | NUR ---
CLOSING Pt is sleeping comfortably in bed, no s/s of any discomfort, [place] catheter patent and draining yellow urine. bed at lowest position for safety, will endorse to day nurse.
[2022-08-12 07:26] LABS: BASOPHILS # (AUTO) 0.1 K/uL (0.0-0.2); BASOPHILS % (AUTO) 0.5 % (0.0-2.0); EOSINOPHILS # (AUTO) 0.1 K/uL (0.0-0.4); EOSINOPHILS % (AUTO) 1.4 % (0.0-4.0); HEMATOCRIT 29.4 % (36-54); HEMOGLOBIN 9.9 g/dL (14.0-18.0); LYMPHOCYTES # (AUTO) 2.2 K/uL (1.0-5.5); LYMPHOCYTES % (AUTO) 21.2 % (20.5-51.5); MEAN CORPUSCULAR HEMOGLOBIN 31 pg (27-31); MEAN CORPUSCULAR HGB CONC 34 % (32-36); MEAN CORPUSCULAR VOLUME 92 fL (79.0-98.0); MONOCYTES % (AUTO) 9.8 % (1.7-9.3); NEUTROPHILS % (AUTO) 67.1 % (40.0-70.0); PLATELET COUNT (AUTO) 235 K/uL (130-430); RED BLOOD CELL COUNT(AUTO) 3.21 MIL/uL (4.2-6.2); WHITE BLOOD COUNT (AUTO) 10.4 K/uL (4.8-10.8)
[2022-08-12] MEDS: BUDESONIDE 0.5 MG/2 ML AMPUL.NEB INH SCH ×2 (07:29→19:51)
[2022-08-12 08:00] VITALS: BP_SYST 98
[2022-08-12 08:12] LABS: ALANINE AMINOTRANSFERASE 14 U/L (12-78); ALBUMIN 2.3 g/dL (3.4-4.8); ANION GAP 10 (5-15); ASPARTATE AMINOTRANSFERASE 18 U/L (10-37); CHLORIDE 95 mmol/L (98-107); CREATININE 1.36 mg/dL (0.55-1.30); GLUCOSE 103 mg/dL (70-99); PHOSPHORUS 3.9 mg/dL (2.7-4.5); TOTAL BILIRUBIN 0.8 mg/dL (0.0-1.0); UREA NITROGEN, BLOOD 22 mg/dL (8-21)
[2022-08-12] MEDS: LOSARTAN POTASSIUM 50 MG TABLET (COZAAR) PO SCH (09:00)
[2022-08-12] MEDS: HYDROCHLOROTHIAZIDE 12.5 MG CAPSULE (HCTZ) PO SCH (09:37)
[2022-08-12] MEDS: FUROSEMIDE 40 MG TABLET PO SCH (09:37)
[2022-08-12] MEDS: ASPIRIN 81 MG TABLET(ECOTRIN) PO SCH (09:37)
[2022-08-12] MEDS: GABAPENTIN 300 MG CAPSULE PO SCH ×2 (09:38→21:34)
[2022-08-12] MEDS: PANTOPRAZOLE SODIUM 40 MG TAB PO SCH (09:38)
[2022-08-12] MEDS: DULoxetine HCL 30 MG CAPSULE.DR (CYMBALTA) PO SCH (09:38)
[2022-08-12] MEDS: EZETIMIBE 10 MG TABLET PO SCH (09:38)
[2022-08-12] MEDS: TAMSULOSIN HCL 0.4 MG CAP PO SCH (09:40)
[2022-08-12] MEDS: CHOLECALCIFEROL (VITAMIN D3) 2,000 UNIT TABLET PO SCH (09:40)
[2022-08-12] MEDS: HYDROcodone/ACETAMIN 10-325 MG TAB PO PRN ×2 (09:43→17:56)
[2022-08-12 11:30] VITALS: BP_SYST 112
--- NOTE | 2022-08-12 11:50 | NUR ---
Critical lab: Troponin 97 MAGI Hansen made aware. NNO at this time.
[2022-08-12] MEDS ORDERED: METOPROLOL SUCCINATE 25 MG TAB.SR.24H (TOPROL XL) PO ONE (12:20)
[2022-08-12 16:53] VITALS: BP_SYST 110
[2022-08-12] MEDS: metFORMIN HCL 500 MG TABLET PO SCH (17:55)
[2022-08-12] MEDS: IPRATROPIUM BROM 0.5 MG/2.5 ML VIAL.NEB (ATROVENT) INH PRN (19:50)
[2022-08-12 20:00] VITALS: BP_SYST 95
[2022-08-12] MEDS: ATORVASTATIN 20 MG TABLET PO SCH (21:34)
[2022-08-13] VITALS: BP_SYST 100
[2022-08-13] MEDS: ALBUTEROL SULFATE 0.083% 2.5 MG/3 ML VIAL.NEB INH SCH ×4 (01:23→19:51)
[2022-08-13] MEDS: IPRATROPIUM BROM 0.5 MG/2.5 ML VIAL.NEB (ATROVENT) INH PRN ×2 (01:25→19:52)
[2022-08-13 04:00] VITALS: BP_SYST 101
[2022-08-13] MEDS: HYDROcodone/ACETAMIN 10-325 MG TAB PO PRN (05:06)
[2022-08-13] MEDS ORDERED: DEXTROSE 50% JECT 50 ML DISP.SYRIN IVP ONE (06:15)
--- NOTE | 2022-08-13 06:15 | NUR ---
PATIENT BLOOD GLUCOSE 71. PATIENT GOING TO SURGERY THIS MORNING AND HAS BEEN NPO SINCE MIDNIGHT. PATIENT IS ASYMPTOMATIC. DR. PARKER PRUETT NOTIFIED. ORDERS GIVEN TO GIVE 1 AM D50 IVP X 1. Carlos ANDREWS RN.
[2022-08-13] MEDS ORDERED: DEXTROSE 50% JECT 50 ML DISP.SYRIN ONE (06:17)
--- NOTE | 2022-08-13 06:52 | NUR ---
BLOOD GLUCOSE RECHECKED AFTER IV D50 AND IS NOW 106. WILL ENDORSE TO DAY SHIFT NURSE. Carlos ANDREWS RN.
[2022-08-13] MEDS: BUDESONIDE 0.5 MG/2 ML AMPUL.NEB INH SCH ×2 (07:06→19:51)
[2022-08-13 07:15] VITALS: BP_SYST 109
[2022-08-13] MEDS ORDERED: SUGAMMADEX SODIUM 200 MG/2 ML VIAL IV ONE (07:45)
[2022-08-13] MEDS ORDERED: ETOMIDATE 20 MG/ 10 ML VIAL (AMIDATE) ONE (07:45)
[2022-08-13] MEDS ORDERED: WATER FOR IRRIGATION,STERILE 1,000 ML IRRIG.SOLN IR ONE (07:45)
[2022-08-13] MEDS ORDERED: BUPIVACAINE /EPINEPHRINE/PF 0.5% 30 ML VIAL INJ ONE (07:45)
[2022-08-13] MEDS ORDERED: NEOSTIGMINE METHYLSULFATE 1 MG/ML, 10 ML VIAL ONE ×2 (07:45→07:58)
[2022-08-13] MEDS ORDERED: NS 1000 ML IV.SOLN IV ONE ×2 (07:45→07:58)
[2022-08-13] MEDS ORDERED: LIDOCAINE 1% 10 MG/ML, 20 ML MDV ONE (07:45)
[2022-08-13] MEDS ORDERED: DEXAMETHASONE SOD PHOSPHATE 4 MG/ML VIAL ONE (07:45)
[2022-08-13] MEDS ORDERED: SEVOFLURANE 15 MIN GAS INH ONE (07:45)
[2022-08-13] MEDS ORDERED: ROCURONIUM BROMIDE 10 MG/ML (ZEMURON) ONE ×2 (07:45→07:58)
[2022-08-13] MEDS ORDERED: NS IRRIG SOLN 1000 ML IR ONE (07:45)
[2022-08-13] MEDS ORDERED: EPINEPHrine HCL 1 MG/ML VIAL ONE (07:45)
[2022-08-13] MEDS ORDERED: fentaNYL CITRATE/PF 100 MCG/2 ML AMP ONE ×2 (07:45→10:08)
[2022-08-13] MEDS ORDERED: ONDANSETRON HCL 4 MG/2 ML VIAL ONE ×2 (07:45→07:58)
[2022-08-13 07:52] LABS: BASOPHILS # (AUTO) 0.1 K/uL (0.0-0.2); BASOPHILS % (AUTO) 0.6 % (0.0-2.0); EOSINOPHILS # (AUTO) 0.4 K/uL (0.0-0.4); EOSINOPHILS % (AUTO) 3.8 % (0.0-4.0); HEMATOCRIT 29.2 % (36-54); HEMOGLOBIN 9.7 g/dL (14.0-18.0); LYMPHOCYTES # (AUTO) 1.6 K/uL (1.0-5.5); LYMPHOCYTES % (AUTO) 15.7 % (20.5-51.5); MEAN CORPUSCULAR HEMOGLOBIN 31 pg (27-31); MEAN CORPUSCULAR HGB CONC 33 % (32-36); MEAN CORPUSCULAR VOLUME 93 fL (79.0-98.0); MONOCYTES # (AUTO) 0.9 K/uL (0.0-1.0); MONOCYTES % (AUTO) 8.2 % (1.7-9.3); NEUTROPHILS # (AUTO) 7.5 K/uL (1.8-7.7); NEUTROPHILS % (AUTO) 71.7 % (40.0-70.0); PLATELET COUNT (AUTO) 199 K/uL (130-430); RED BLOOD CELL COUNT(AUTO) 3.16 MIL/uL (4.2-6.2); RED CELL DISTRIBUTION WIDTH 16.5 % (9.0-15.0); WHITE BLOOD COUNT (AUTO) 10.4 K/uL (4.8-10.8)
[2022-08-13] MEDS ORDERED: PROPOFOL 200MG/ 20ML VIAL (DIPRIVAN) IV ONE (07:58)
[2022-08-13] MEDS ORDERED: SUCCINYLCHOLINE CHLORIDE 20 MG/ML(QUELICIN) ONE (07:58)
[2022-08-13] MEDS ORDERED: GLYCOPYRROLATE 0.2 MG/ML VIAL ONE (07:58)
[2022-08-13] MEDS: metFORMIN HCL 500 MG TABLET PO SCH ×2 (08:00→19:25)
[2022-08-13 08:07] LABS: ANION GAP 7 (5-15); CHLORIDE 97 mmol/L (98-107); CREATININE 1.33 mg/dL (0.55-1.30); GLUCOSE 158 mg/dL (70-99); UREA NITROGEN, BLOOD 23 mg/dL (8-21)
[2022-08-13] MEDS: GABAPENTIN 300 MG CAPSULE PO SCH ×2 (09:00→21:17)
[2022-08-13] MEDS: LOSARTAN POTASSIUM 50 MG TABLET (COZAAR) PO SCH (09:00)
[2022-08-13] MEDS: HYDROCHLOROTHIAZIDE 12.5 MG CAPSULE (HCTZ) PO SCH (09:00)
[2022-08-13] MEDS: CHOLECALCIFEROL (VITAMIN D3) 2,000 UNIT TABLET PO SCH (09:00)
[2022-08-13] MEDS ORDERED: fentaNYL CITRATE/PF 100 MCG/2 ML AMP IVP ONE (10:30)
[2022-08-13 10:45] VITALS: BP_SYST 102
--- NOTE | 2022-08-13 11:02 | NUR ---
PATIENT RETURNED TO ROOM VIA BED ACCOMPANIED BY NURSE ON MONITOR, AAOX4. S/P LEFT HIP ORIF, DRESSING TO SURGICAL SITE C/D/I. DENIES ANY DISCOMFORT PRESENTLY. PATIENT PLACED ON CHARGEMASTER SPECIALIST, FREQ VITAL SIGNS INITIATED. WILL RESUME ALL THERAPY. PATIENT ENCOURAGED TO CALL FOR ANY DISCOMFORT OR ASSISTANCE NEEDED. SAFETY PRECAUTIONS FOLLOWED.
[2022-08-13] MEDS: CEFAZOLIN 2 GM IVPB PREMIX 50 ML IV SCH ×2 (14:00→21:18)
[2022-08-13] MEDS: DULoxetine HCL 30 MG CAPSULE.DR (CYMBALTA) PO SCH (14:04)
[2022-08-13] MEDS: EZETIMIBE 10 MG TABLET PO SCH (14:04)
[2022-08-13] MEDS: TAMSULOSIN HCL 0.4 MG CAP PO SCH (14:04)
[2022-08-13] MEDS: PANTOPRAZOLE SODIUM 40 MG TAB PO SCH (14:05)
[2022-08-13 15:24] VITALS: BP_SYST 111
[2022-08-13] MEDS: INSULIN REGULAR, HUMAN 100 UNITS/ML, 3 ML VIAL (humuLIN R) SUBCUT PRN (17:00)
[2022-08-13] MEDS: FUROSEMIDE 40 MG TABLET PO SCH (17:16)
[2022-08-13] MEDS: METOPROLOL SUCCINATE 25 MG TAB.SR.24H (TOPROL XL) PO SCH (17:49)
--- NOTE | 2022-08-13 18:30 | NUR ---
Patient resting quietly in bed, no c/o pain. Patient instructed on use of incentive spirometry 500 to 1000ml. Patient refused meals, needs encouragement. Safety maintained this shift. Continue to monitor closely.
[2022-08-13 20:00] VITALS: BP_SYST 100
--- NOTE | 2022-08-13 20:00 | NUR ---
ASSUMED CARE OF PATIENT AT THIS TIME. A/O X4. VSS. AFEBRILE. RESPIRATIONS EVEN AND UNLABORED. NO SOB NOTED O2 SAT 100% ON 2LNC. HL INTACT AND PATENT WITH NO REDNESS OR IRRITATION TO SITE. LEFT HIP DRESSING CLEAN DRY AND INTACT. DENIES PAIN AT THIS TIME. NO ACUTE DISTRESS NOTED. CALL LIGHT WITHIN REACH. WILL CONTINUE TO MONITOR FOR SAFETY. Carlos ANDREWS RN.
[2022-08-13] MEDS: ATORVASTATIN 20 MG TABLET PO SCH (21:17)
--- NOTE | 2022-08-13 21:23 | NUR ---
Dietitian Recommendations Continue on Consistent Carb Diet -If PO improves, monitor renal labs for need for modifications Recommend Glucerna BID for help with meeting nutrient needs Goals 1. PO intake to meet 80-100% of estimated nutrient needs without GI complications (ongoing) 2. Maintain skin integrity (ongoing/met) 3. Improved/stable nutrition related lab values (ongoing) Monitor/Evaluate PO intake, GI, skin, labs See full RD Assessment for details RM, RDN
[2022-08-14] VITALS (12 sets, daily range): BP systolic 81–102
--- NOTE | 2022-08-14 00:30 | NUR ---
SLEEPING COMFORTABLY WITH NO DISTRESS OR DISCOMFORT NOTED. Carlos ANDREWS RN.
[2022-08-14] MEDS: ALBUTEROL SULFATE 0.083% 2.5 MG/3 ML VIAL.NEB INH SCH ×4 (01:00→19:00)
[2022-08-14] MEDS: CEFAZOLIN 2 GM IVPB PREMIX 50 ML IV SCH ×2 (06:00→14:13)
--- NOTE | 2022-08-14 06:00 | NUR ---
PATIENT SLEEP WELL THROUGH THE NIGHT WITH NO ACUTE DISTRESS NOTED. WILL ENDORSE TO DAY SHIFT NURSE. Carlos ANDREWS RN.
[2022-08-14] MEDS: BUDESONIDE 0.5 MG/2 ML AMPUL.NEB INH SCH ×2 (07:37→19:00)
--- NOTE | 2022-08-14 07:44 | NUR ---
Short Nutrition Note RD ordered Glucerna BID for this pt. Please see Nutrition Assessment for full details GS, MPH, RD
--- NOTE | 2022-08-14 08:00 | NUR ---
IV PLACEMENT: # 22 gauge angiocath placed to left wrist. Use of asceptic technique. Opsite placed over site. Blood return noted. Flushed with 10 cc of normal saline. No evidence of infiltration noted. Patient tolerated well.
[2022-08-14] MEDS: LOSARTAN POTASSIUM 50 MG TABLET (COZAAR) PO SCH (08:44)
[2022-08-14] MEDS: FUROSEMIDE 40 MG TABLET PO SCH (08:45)
[2022-08-14] MEDS: METOPROLOL SUCCINATE 25 MG TAB.SR.24H (TOPROL XL) PO SCH (08:45)
[2022-08-14] MEDS: DULoxetine HCL 30 MG CAPSULE.DR (CYMBALTA) PO SCH (09:00)
[2022-08-14] MEDS: GABAPENTIN 300 MG CAPSULE PO SCH (09:00)
[2022-08-14] MEDS: HYDROCHLOROTHIAZIDE 12.5 MG CAPSULE (HCTZ) PO SCH (09:00)
[2022-08-14] MEDS ORDERED: *LOVENOX 1MG/KG Q24H/PHARMACY XX ONE (09:00)
[2022-08-14] MEDS: TAMSULOSIN HCL 0.4 MG CAP PO SCH (09:00)
[2022-08-14] MEDS ORDERED: NS 250 ML IV ONE ×2 (10:00→15:15)
--- NOTE | 2022-08-14 10:00 | NUR ---
BP decreased to 84/52,hold am meds for HTN, here and notified, give NS 250ml IV bolus per order.
--- NOTE | 2022-08-14 11:15 | NUR ---
BP remains low 81/45 after 250ml NS bolus,placed pt on flat position,and repeat BP in right arm 90/46.BP in left arm 93/49,pulse 97,pt denies pain or discomfort unless with movement dressing in left hip remains dry and intact,placed condom cath on to monitor urine output and keep underpad dry
[2022-08-14] MEDS: EZETIMIBE 10 MG TABLET PO SCH (11:44)
[2022-08-14] MEDS: metFORMIN HCL 500 MG TABLET PO SCH ×2 (11:44→17:57)
[2022-08-14] MEDS: PANTOPRAZOLE SODIUM 40 MG TAB PO SCH (11:44)
[2022-08-14] MEDS: CHOLECALCIFEROL (VITAMIN D3) 2,000 UNIT TABLET PO SCH (11:45)
[2022-08-14] MEDS: ENOXAPARIN SODIUM 60 MG/0.6 ML SYRINGE SUBCUT SCH (11:48)
--- NOTE | 2022-08-14 13:06 | NUR ---
ATTEMPTED TO SEE PATIENT IN THE AM, HOWEVER RN DID NOT MEDICALLY CLEAR PATIENT FOR PT TREATMENT D/T LOW BP. WILL TRY AGAIN THIS PM.
--- NOTE | 2022-08-14 14:00 | NUR ---
Jade SOW for cardiology consult here and notified pt having hypotention rechecked BP 91/51,pulse 97,give another NS 250ml IV bolus per order condom cath emptied 250ml clear yellow urine.
[2022-08-14] MEDS: NACL 0.9% 1,000 ML IV SCH ×2 (14:12→23:36)
[2022-08-14] MEDS ORDERED: NORMAL SALINE 10 ML VIAL IVP ONE (14:45)
[2022-08-14 15:26] LABS: BASOPHILS # (AUTO) 0.1 K/uL (0.0-0.2); BASOPHILS % (AUTO) 0.5 % (0.0-2.0); EOSINOPHILS # (AUTO) 0.1 K/uL (0.0-0.4); EOSINOPHILS % (AUTO) 0.6 % (0.0-4.0); HEMATOCRIT 27.9 % (36-54); HEMOGLOBIN 9.1 g/dL (14.0-18.0); LYMPHOCYTES # (AUTO) 1.9 K/uL (1.0-5.5); LYMPHOCYTES % (AUTO) 16.7 % (20.5-51.5); MEAN CORPUSCULAR HEMOGLOBIN 30 pg (27-31); MEAN CORPUSCULAR HGB CONC 33 % (32-36); MEAN CORPUSCULAR VOLUME 93 fL (79.0-98.0); MONOCYTES # (AUTO) 1.4 K/uL (0.0-1.0); MONOCYTES % (AUTO) 12.2 % (1.7-9.3); PLATELET COUNT (AUTO) 213 K/uL (130-430); RED BLOOD CELL COUNT(AUTO) 3.01 MIL/uL (4.2-6.2); RED CELL DISTRIBUTION WIDTH 15.6 % (9.0-15.0); WHITE BLOOD COUNT (AUTO) 11.4 K/uL (4.8-10.8)
[2022-08-14 15:33] LABS: ALANINE AMINOTRANSFERASE 11 U/L (12-78); ALBUMIN 1.9 g/dL (3.4-4.8); ANION GAP 7 (5-15); ASPARTATE AMINOTRANSFERASE 35 U/L (10-37); CHLORIDE 99 mmol/L (98-107); CREATININE 1.55 mg/dL (0.55-1.30); GLUCOSE 142 mg/dL (70-99); TOTAL BILIRUBIN 0.3 mg/dL (0.0-1.0); UREA NITROGEN, BLOOD 31 mg/dL (8-21)
--- NOTE | 2022-08-14 16:00 | NUR ---
BP 86/56 per right arm,repeat 91/48,left arm BP 90/49 Jade SOW here notified,increased IVF infusion to 120ml per hr as per dillondisubha requests.continue to hold HTN meds.
--- NOTE | 2022-08-14 18:19 | NUR ---
IVF continue infusing,pt eating well for dinner,blood sugar 110mg/dl give glucophage po due,BP 98/75,pulse 101 continue to monitor pt.
[2022-08-14] MEDS: ATORVASTATIN 20 MG TABLET PO SCH (20:27)
[2022-08-14] MEDS ORDERED: MIDODRINE HCL 5 MG TABLET (PROAMATINE) PO ONE (22:40)
--- NOTE | 2022-08-14 22:41 | NUR ---
COMMUNICATION W/ DR. JENSEN Y DR. JENSENY MADE AWARE AT THIS TIME THAT PATIENT'S BLOOD PRESSURE REMAINS LOW, WITH (SBP AVERAGING AROUND 85-90) DESPITE GETTING CONTINUOUS FLUIDS AT 120 MLS/HR . GAVE NEW ORDER, ORDER READ BACK AND VERIFIED.
[2022-08-15] VITALS (7 sets, daily range): BP systolic 94–106
[2022-08-15] MEDS: dilTIAZem HCL IVP 5 MG/ML VIAL IVP PRN (00:08)
[2022-08-15] MEDS: ALBUTEROL SULFATE 0.083% 2.5 MG/3 ML VIAL.NEB INH SCH ×4 (01:00→19:52)
--- NOTE | 2022-08-15 05:15 | NUR ---
HYGIENE CARE/ BOWEL MOVEMENT PATIENT HAD A LARGE BOWEL MOVEMENT, BROWN AND WATERY. HYGIENE CARE PROVIDED FRESH LINENS PROVIDED. PATIENT IS REPOSITIONED FOR COMFORT. HE TOLERATED WELL.
[2022-08-15 06:05] LABS: BASOPHILS # (AUTO) 0.1 K/uL (0.0-0.2); BASOPHILS % (AUTO) 0.9 % (0.0-2.0); EOSINOPHILS # (AUTO) 0.2 K/uL (0.0-0.4); EOSINOPHILS % (AUTO) 2.2 % (0.0-4.0); HEMATOCRIT 25.8 % (36-54); HEMOGLOBIN 8.6 g/dL (14.0-18.0); LYMPHOCYTES # (AUTO) 2.6 K/uL (1.0-5.5); LYMPHOCYTES % (AUTO) 28.9 % (20.5-51.5); MEAN CORPUSCULAR HEMOGLOBIN 31 pg (27-31); MEAN CORPUSCULAR HGB CONC 33 % (32-36); MEAN CORPUSCULAR VOLUME 92 fL (79.0-98.0); MONOCYTES # (AUTO) 1.1 K/uL (0.0-1.0); MONOCYTES % (AUTO) 12.4 % (1.7-9.3); NEUTROPHILS % (AUTO) 55.6 % (40.0-70.0); PLATELET COUNT (AUTO) 231 K/uL (130-430); RED CELL DISTRIBUTION WIDTH 15.9 % (9.0-15.0)
--- NOTE | 2022-08-15 06:32 | NUR ---
CLOSING NOTE PATIENT'S BLOOD PRESSURE REMAINED LOW DURING THE NIGHT, ALTHOUGH PATIENT REMAINS ASYMPTOMATIC. HE VERBALIZES MODERATE HIP PAIN. HE IS NOT ABLE TO MOVE AT THIS TIME OR REPOSITION WITHOUT ASSISTANCE. NEUROVASCULAR CHECKS [id number] DURING THE NIGHT HAVE BEEN WNL. WILL CONTINUE TO MONITOR UNTIL REPORT IS GIVEN AT BEDSIDE TO AM NURSE.
[2022-08-15 06:39] LABS: ANION GAP 9 (5-15); CHLORIDE 102 mmol/L (98-107); CREATININE 1.35 mg/dL (0.55-1.30); GLUCOSE 107 mg/dL (70-99); UREA NITROGEN, BLOOD 26 mg/dL (8-21)
[2022-08-15] MEDS: BUDESONIDE 0.5 MG/2 ML AMPUL.NEB INH SCH ×2 (07:00→20:07)
[2022-08-15] MEDS: metFORMIN HCL 500 MG TABLET PO SCH ×2 (08:00→18:00)
[2022-08-15] MEDS: DULoxetine HCL 30 MG CAPSULE.DR (CYMBALTA) PO SCH (09:27)
[2022-08-15] MEDS: MIDODRINE HCL 5 MG TABLET (PROAMATINE) PO SCH ×3 (09:27→20:37)
[2022-08-15] MEDS: TAMSULOSIN HCL 0.4 MG CAP PO SCH (09:27)
[2022-08-15] MEDS: PANTOPRAZOLE SODIUM 40 MG TAB PO SCH (09:28)
[2022-08-15] MEDS: ENOXAPARIN SODIUM 60 MG/0.6 ML SYRINGE SUBCUT SCH (09:29)
[2022-08-15] MEDS: EZETIMIBE 10 MG TABLET PO SCH (09:31)
[2022-08-15] MEDS: CHOLECALCIFEROL (VITAMIN D3) 2,000 UNIT TABLET PO SCH (09:31)
[2022-08-15] MEDS: NACL 0.9% 1,000 ML IV SCH ×2 (09:34→15:14)
[2022-08-15] MEDS ORDERED: traMADol HCL HCL 50 MG TABLET (ULTRAM) PO PRN (10:00)
--- NOTE | 2022-08-15 16:29 | NUR ---
PHYSICAL THERAPY CO-SIGN The Physical Therapy Progress Notes documented by Recycling Sorter have been reviewed. Reviewed/Co-Signed by: Israel Al Documentation Done by:LAURA PIERRE Addendum: 08/15/22 at 1630 by Israel Al PT Amended: Links added.
[2022-08-15] MEDS: ATORVASTATIN 20 MG TABLET PO SCH (20:37)
--- NOTE | 2022-08-15 22:15 | NUR ---
HYGIENE CARE HYGIENE CARE PROVIDED FRESH LINENS PROVIDED. PATIENT IS REPOSITIONED FOR COMFORT. HE TOLERATED WELL.
[2022-08-16] MEDS: NACL 0.9% 1,000 ML IV SCH ×2 (00:36→10:03)
[2022-08-16 00:37] VITALS: BP_SYST 109
[2022-08-16] MEDS: ALBUTEROL SULFATE 0.083% 2.5 MG/3 ML VIAL.NEB INH SCH ×4 (01:00→20:26)
[2022-08-16 06:17] LABS: BASOPHILS % (AUTO) 0.4 % (0.0-2.0); EOSINOPHILS # (AUTO) 0.3 K/uL (0.0-0.4); EOSINOPHILS % (AUTO) 4.6 % (0.0-4.0); HEMATOCRIT 22.3 % (36-54); HEMOGLOBIN 7.4 g/dL (14.0-18.0); LYMPHOCYTES # (AUTO) 2.1 K/uL (1.0-5.5); LYMPHOCYTES % (AUTO) 31.3 % (20.5-51.5); MEAN CORPUSCULAR HEMOGLOBIN 31 pg (27-31); MEAN CORPUSCULAR HGB CONC 33 % (32-36); MEAN CORPUSCULAR VOLUME 92 fL (79.0-98.0); MONOCYTES # (AUTO) 0.7 K/uL (0.0-1.0); MONOCYTES % (AUTO) 10.2 % (1.7-9.3); NEUTROPHILS # (AUTO) 3.6 K/uL (1.8-7.7); NEUTROPHILS % (AUTO) 53.5 % (40.0-70.0); PLATELET COUNT (AUTO) 223 K/uL (130-430); RED BLOOD CELL COUNT(AUTO) 2.44 MIL/uL (4.2-6.2); RED CELL DISTRIBUTION WIDTH 15.7 % (9.0-15.0); WHITE BLOOD COUNT (AUTO) 6.7 K/uL (4.8-10.8)
[2022-08-16 06:40] LABS: ALANINE AMINOTRANSFERASE 7 U/L (12-78); ALBUMIN 1.8 g/dL (3.4-4.8); ANION GAP 6 (5-15); ASPARTATE AMINOTRANSFERASE 25 U/L (10-37); CALCIUM 7.9 mg/dL (8.4-11.0); CHLORIDE 105 mmol/L (98-107); CREATININE 1.08 mg/dL (0.55-1.30); GLUCOSE 87 mg/dL (70-99); TOTAL BILIRUBIN 0.4 mg/dL (0.0-1.0); UREA NITROGEN, BLOOD 22 mg/dL (8-21)
--- NOTE | 2022-08-16 06:55 | NUR ---
CLOSING NOTE PATIENT'S BLOOD PRESSURE REMAINED LOW DURING THE NIGHT, ALTHOUGH PATIENT REMAINS ASYMPTOMATIC. HE VERBALIZES NO HIP PAIN. HE IS NOT ABLE TO MOVE AT THIS TIME OR REPOSITION WITHOUT ASSISTANCE. NEUROVASCULAR CHECKS [id number] DURING THE NIGHT HAVE BEEN WNL. WILL CONTINUE TO MONITOR UNTIL REPORT IS GIVEN AT BEDSIDE TO AM NURSE.
[2022-08-16] MEDS: BUDESONIDE 0.5 MG/2 ML AMPUL.NEB INH SCH ×2 (07:26→20:26)
[2022-08-16 08:00] VITALS: BP_SYST 117
[2022-08-16 09:03] VITALS: BP_SYST 109
[2022-08-16] MEDS: PANTOPRAZOLE SODIUM 40 MG TAB PO SCH (09:49)
[2022-08-16] MEDS: ENOXAPARIN SODIUM 60 MG/0.6 ML SYRINGE SUBCUT SCH (09:49)
[2022-08-16] MEDS: EZETIMIBE 10 MG TABLET PO SCH (09:54)
[2022-08-16] MEDS: MIDODRINE HCL 5 MG TABLET (PROAMATINE) PO SCH ×3 (09:55→21:44)
[2022-08-16] MEDS: DULoxetine HCL 30 MG CAPSULE.DR (CYMBALTA) PO SCH (09:55)
[2022-08-16] MEDS: metFORMIN HCL 500 MG TABLET PO SCH ×2 (09:55→18:00)
[2022-08-16] MEDS: TAMSULOSIN HCL 0.4 MG CAP PO SCH (09:56)
[2022-08-16] MEDS: CHOLECALCIFEROL (VITAMIN D3) 2,000 UNIT TABLET PO SCH (09:56)
[2022-08-16 10:58] VITALS: BP_SYST 121
--- NOTE | 2022-08-16 11:05 | NUR ---
SPOKE WITH DR FALLON RE: HIGH ALERT TRAMADOL 50MG TID. VERIFIED WITH DR FALLON AT 1100 AND HE OKAYED.
[2022-08-16] MEDS ORDERED: traMADol HCL HCL 50 MG TABLET (ULTRAM) PO ONE (11:15)
[2022-08-16] MEDS ORDERED: TRAM50TA2 PO (12:19)
[2022-08-16] MEDS: traMADol HCL HCL 50 MG TABLET (ULTRAM) PO SCH ×2 (15:12→21:43)
--- NOTE | 2022-08-16 15:30 | NUR ---
PHYSICAL THERAPY CO-SIGN The Physical Therapy Progress Notes documented by Platform Architect have been reviewed. Reviewed/Co-Signed by: Israel Al Documentation Done by:LAURA PIERRE Addendum: 08/16/22 at 1530 by Israel Al PT Amended: Links added.
--- NOTE | 2022-08-16 15:50 | NUR ---
Nutrition F/U Elevated Guard reviewed pts current EMR including diet hx, physician notes, nursing notes, pertinent labs/meds/procedures, care trends and care activity. Admitting Diagnosis Fracture of the Hip PMH: Per H&P (08/11/22), 81-year-old male who presented to the ER after a mechanical fall on day of admission, patient reports pain at an 8/10, patient denies associated head injury, trauma or loss of consciousness, chest pain or shortness of breath. - PMH: COPD, DM, GERD, HTN, HLD, benign prostatic hypertrophy, chronic anticoagulation therapy. - Pt also found to have anemia, hyponatremia, OMAR. - 08/15 I/O: 2260mL/1450mL (810mL) Subjective Information Elevated Guard spoke w/ pt while he was eating lunch. Pt only took 2 small bites of the pudding and did not touch his lunch tray. Pt does not like the hospital foods and preferred sandwiches/subs. Pt agreed to snacks BID along w/ appetite stimulant (Megace). Pt enjoyed Glucerna ONS but prefers vanilla flavor he drank one whole can from B. No N/V, but pt is experiencing diarrhea. Pt would benefit from liberalized, regular diet. DI spoke w/ primary RN (Steven) about appetite stimulant. She said she will relay the message to MD Lee. Likes: Egg salad sandwich, tuna salad sandwich Dislikes: Fish (tuna salad OK) Current Diet Order/Nutrition Support CCHO diet x 2 days Patient/Significant Other Able To Verbalize Education Provided Not Indicated Pertinent Medications NaCl @ 120 mL, Lovenox, Metformin, Protonix, Flomax, Zetia, Vit. D3, Lipitor, Budesonide, SSI, Zofran Pertinent Labs BUN 22H (trending down), Cre 1.08WNL, BG 87 WNL, Ca 7.9L (trending down), Alb 1.8L (trending down) (08/10): HgA1c 6.0WNL Height (Feet) 5 feet Height (Inches) 6.00 inches Weight (Pounds) 132 pounds (Stable since 08/13) Patient Weight 59.874 kg Body Mass Index 21.30 kg/m2 Usual Weight 123 lbs %UBW 107 %IBW 93 [place]/Adjusted Body Weight 142 lbs. = BMI 23 Geriatrics Recent Weight Change No Weight Status Appropriate Gastrointestinal Symptoms None Last BM Aug 15, 2022 x 2 Food Allergies No Skin Integrity Comment: Berry: 16 08/15 Wounds: Surgical incision on 08/13; skin intact 08/15 Edema: Non-pitting on bilat. Hand 08/15 Current % PO Poor, avg 26% x 13 meals Estimated Energy Expenditure (kcals/day) 3423-2249 kcals/day (30-32 kcals/kg of IBW 65 kg for geriatrics/COPD) Estimated Protein Required (g/day) 65-78 gm/day (1.0-1.2 gm/kg of IBW 65 kg for geriatrics/COPD, OMAR) Estimated Fluid Required (l/day) 1.9-2.1 (geriatric maintenance) Problem/Etiology/Signs/Symptoms *MODIFIED* 1. Inadequate protein/energy intake R/T poor appetite AEB avg poor PO intakes of 26% x 13 meals (*Ongoing). 2. Altered nutrition-related lab values R/T endocrine dysfunction/current medical condition AEB labs BUN 22H, Cre 1.08 WNL, BG 87 WNL, (08/10): HgA1c 6.0WNL (*Improving). Expected Outcomes/Goals 1. PO intake to meet 50-75% of estimated nutrient needs without GI complications 2. Maintain skin integrity, weight, BM regime 3. Improved/stable nutrition related lab values Dietitian Recommendations 1. Regular diet, Banatrol BID 2. Snacks BID 3. Consider appetite stimulant (Megace) Follow Up High Risk: F/U in 2-3days BUTCH, MS, RD
--- NOTE | 2022-08-16 15:50 | NUR ---
Dietitian Recommendations 1. Regular diet, Banatrol BID 2. Snacks BID 3. Consider appetite stimulant (Megace) LP, MS, RD Please refer to Nutrition F/U for details.
--- NOTE | 2022-08-16 15:59 | NUR ---
UPDATED Dietitian Recommendations Dietitian Recommendations 1. Regular diet, Glucerna BID, Banatrol BID (ONS yields 440 kcal/day, 20 gm protein/day) 2. Snacks BID 3. Consider appetite stimulant (Megace) LP, MS, RD Please refer to Nutrition F/U for details.
--- NOTE | 2022-08-16 16:07 | NUR ---
Attempted to speak with patient at bedside this afternoon about additional in home care after discharge. The patient preferred I call his to discuss needs. I advised the patient I would call his , but also advised him that I left private brochures for the family's review at bedside. Telephone call made to the , however there was no answer. I left a message and requested a returned phone call. Telephone call made to the son, Juvenal, to discuss additional in home care after discharge. The son requested I call his , Jany as she had more information. Telephone call made to Jany who advised the family has just gotten off of the phone with Julius, from [facility]. The patient will actually go to a SNF placement. The patient was accepted to [facility] in [place]. A transport has been arranged for a P/U tonight at 7p. The daughter in law also requested that she be called if there are additional questions or concerns. CRYS Harris called to advised of the discharge arrangements for the patient. Jany Elizalde: [phone]
--- NOTE | 2022-08-16 16:12 | NUR ---
[facility]/HCP MEJIA PERDOMO CALLED TO GIVE TRANSFER INFO: FACILITY/SNF: [facility], RM [address] TEL # TO GIVE REPORT - [phone] AMBULANCE: [facility], DIETARY AID TIME IS 1930 ([phone]) NOTIFIED CRYS PATTERSON OF THE TRANSFER ORDER AND INFOR.
[2022-08-16 16:59] VITALS: BP_SYST 138
--- NOTE | 2022-08-16 18:18 | NUR ---
CALLED [facility] AND GAVE REPORT TO MISHA SPANGLER.
[2022-08-16 20:00] VITALS: BP_SYST 129
[2022-08-16] MEDS: IPRATROPIUM BROM 0.5 MG/2.5 ML VIAL.NEB (ATROVENT) INH PRN (20:27)
[2022-08-16] MEDS ORDERED: APIXABAN 2.5 MG TABLET PO SCH (21:00)
[2022-08-16] MEDS: ATORVASTATIN 20 MG TABLET PO SCH (21:42)
[2022-08-17] VITALS: BP_SYST 139
--- NOTE | 2022-08-17 02:33 | NUR ---
AMBULANCE HERE TO TAKE PT, PT A/A/O XS 4 NO DISTRESS NOTED, VSS
[2022-08-18] MEDS ORDERED: traMADol HCL HCL 50 MG TABLET (ULTRAM) PO PRN (11:00)
== END 2022-08-17 02:30 | DRG 480 ==
LOC: SED 09:15 → SMU 12:38 → STU 08-11 23:34
PROVIDERS: ADMIT Specialist; ATTEND Specialist
PROC: 0QH706Z Insertion of Intramedullary Internal Fixation Device into Left Upper Femur, Open Approach (ICD-10-PCS; principal; 2022-08-13 07:45)
DX: S72.142A Displaced intertrochanteric fracture of left femur, initial encounter for closed fracture (principal); E41 Nutritional marasmus; E44.0 Moderate protein-calorie malnutrition; S22.42XA Multiple fractures of ribs, left side, initial encounter for closed fracture; E87.1 Hypo-osmolality and hyponatremia; N17.9 Acute kidney failure, unspecified; I24.8 Other forms of acute ischemic heart disease; E78.5 Hyperlipidemia, unspecified; N40.0 Benign prostatic hyperplasia without lower urinary tract symptoms; K21.9 Gastro-esophageal reflux disease without esophagitis; J44.9 Chronic obstructive pulmonary disease, unspecified; E11.65 Type 2 diabetes mellitus with hyperglycemia; I12.9 Hypertensive chronic kidney disease with stage 1 through stage 4 chronic kidney disease, or unspecified chronic kidney disease; E11.22 Type 2 diabetes mellitus with diabetic chronic kidney disease; N18.32 Chronic kidney disease, stage 3b; W18.39XA Other fall on same level, initial encounter; D64.9 Anemia, unspecified; Z20.822 Contact with and (suspected) exposure to COVID-19; I35.0 Nonrheumatic aortic (valve) stenosis; Z79.82 Long term (current) use of aspirin; Z79.899 Other long term (current) drug therapy; Z79.01 Long term (current) use of anticoagulants; Y93.89 Activity, other specified; Y92.89 Other specified places as the place of occurrence of the external cause; Y99.8 Other external cause status
CPT/HCPCS: 36415; 71100; 72170-TC; 73502; 73552; 73700-TC; 76000; 76376; 76770; 80048; 80053; 83037; 83735; 83880; 84100; 84484; 85025; 85610-TC; 86886; 86900; 86901; 87081; 93005; 94640; 94760; 96372; 96374; 97110-GP; 97116-GP; 97163-GP; 97530-GP; 99285; G0378; J0171; J0330; J0690; J1100; J1650; J1885; J2001; J2060; J2270; J2405; J2704; J2710; J3010; J3490; J7030; J7613; J7626

== ENCOUNTER 2022-09-09 08:43 | Emergency (ER) | payer OTHER ==
[~2022-09-09] VITALS: Ht 170.2 cm; Wt 72.6 kg
[~2022-09-09 08:43] MED LIST changes: -ATOR40TA68 PO; +DULO30CA52 PO; +EZET10TA30 PO; -FLUT1AER INH; +GABA300T25; +GABAPENTIN; -LEVO750T64 PO; +LISI1TAB55 PO; -NEU300 PO; +SITA50TA3 PO; +TAMS0.4C96 PO
[2022-09-09 08:47] VITALS: BP_SYST 119
[2022-09-09] MEDS ORDERED: ATOR40TA68 PO (08:55)
[2022-09-09] MEDS ORDERED: FLUT1AER INH (08:55)
[2022-09-09] MEDS ORDERED: FERR250T2 PO (08:55)
[2022-09-09] MEDS ORDERED: SITA100T11 PO (08:55)
[2022-09-09 09:37] LABS: BASOPHILS # (AUTO) 0.1 K/uL (0.0-0.2); BASOPHILS % (AUTO) 0.7 % (0.0-2.0); EOSINOPHILS # (AUTO) 0.4 K/uL (0.0-0.4); HEMATOCRIT 30.3 % (36-54); HEMOGLOBIN 9.9 g/dL (14.0-18.0); LYMPHOCYTES # (AUTO) 2.4 K/uL (1.0-5.5); LYMPHOCYTES % (AUTO) 19.2 % (20.5-51.5); MEAN CORPUSCULAR HEMOGLOBIN 29 pg (27-31); MEAN CORPUSCULAR HGB CONC 33 % (32-36); MEAN CORPUSCULAR VOLUME 88 fL (79.0-98.0); MONOCYTES # (AUTO) 0.8 K/uL (0.0-1.0); MONOCYTES % (AUTO) 6.6 % (1.7-9.3); NEUTROPHILS # (AUTO) 8.7 K/uL (1.8-7.7); NEUTROPHILS % (AUTO) 70.5 % (40.0-70.0); PLATELET COUNT (AUTO) 287 K/uL (130-430); RED BLOOD CELL COUNT(AUTO) 3.43 MIL/uL (4.2-6.2); RED CELL DISTRIBUTION WIDTH 16.8 % (9.0-15.0); WHITE BLOOD COUNT (AUTO) 12.4 K/uL (4.8-10.8)
[2022-09-09 09:50] LABS: ANION GAP 9 (5-15); CALCIUM 8.1 mg/dL (8.4-11.0); CHLORIDE 97 mmol/L (98-107); CREATININE 1.01 mg/dL (0.55-1.30); GLUCOSE 151 mg/dL (70-99); UREA NITROGEN, BLOOD 13 mg/dL (8-21)
[2022-09-09 09:57] LABS: ALANINE AMINOTRANSFERASE 7 U/L (12-78); ALBUMIN 2.1 g/dL (3.4-4.8); ASPARTATE AMINOTRANSFERASE 12 U/L (10-37); TOTAL BILIRUBIN 0.7 mg/dL (0.0-1.0)
[2022-09-09] MEDS ORDERED: NACL 0.9% 1,000 ML IV ONE (11:00)
[2022-09-09] MEDS ORDERED: DOCU-144 PO (12:05)
[2022-09-09] MEDS ORDERED: POLY17PO4 PO (12:05)
[2022-09-09 12:28] VITALS: BP_SYST 129
== END 2022-09-09 12:58 | disposition home or self-care (01) ==
LOC: SED 08:43
DX: R55 Syncope and collapse (principal); K59.00 Constipation, unspecified; E86.0 Dehydration; D64.9 Anemia, unspecified; J44.9 Chronic obstructive pulmonary disease, unspecified; E11.9 Type 2 diabetes mellitus without complications; K21.9 Gastro-esophageal reflux disease without esophagitis; R42 Dizziness and giddiness; R09.89 Other specified symptoms and signs involving the circulatory and respiratory systems; I10 Essential (primary) hypertension; Z88.0 Allergy status to penicillin; Z79.899 Other long term (current) drug therapy; Z20.822 Contact with and (suspected) exposure to COVID-19
CPT/HCPCS: 99285; 96360; 71045; 87426; 80053; 83880; 85025; 87040; 84484; 36415; 93005; 83605; J7030